=== PATIENT | male | born 1960 | race Caucasian/White ===

== ENCOUNTER 2017-07-18 05:21 | Day surgery (SDC) | payer MEDICARE, BC ==
[2017-07-17 11:18] LABS: BASOPHILS 0.3 % (0-2); EOSINOPHILS 2.2 % (0-7); HEMATOCRIT 43.3 % (42.0-54.0); HEMOGLOBIN 14.1 g/dL (13.5-17.5); IMMATURE GRANULOCYTES 0.6 % (0-5); LYMPHOCYTES 12.4 % (15-50); MCH 33.4 pg (26.0-34.0); MCHC 32.6 g/dL (31.0-37.0); MCV 102.6 fL (80.0-100.0); MEAN PLATELET VOLUME 9.9 fL (7.4-10.4); MONOCYTES 7.6 % (2-11); NEUTROPHILS 76.9 % (40-80); RBC 4.22 10x6/uL (4.20-6.10); RDW 14.3 % (11.5-14.5); WBC 6.7 10x3/uL (4.8-10.8)
[2017-07-17 11:27] LABS: PLATELET COUNT 165 10x3/uL (130-400)
[2017-07-17 11:33] LABS: APTT 27.5 SECONDS (22.8-39.4); INR 1.05 (0.85-1.17); PROTIME 13.3 SECONDS (11.6-15.0)
[2017-07-17 11:39] LABS: ANION GAP 16.3 mmol/L (8-16); CALCIUM 9.7 mg/dL (8.5-10.1); CARBON DIOXIDE 21.8 mmol/L (21.0-32.0); CREATININE - SERUM 6.1 mg/dL (0.6-1.3); POTASSIUM - SERUM 4.1 mmol/L (3.5-5.1)
[2017-07-17 12:17] LABS: APPEARANCE TURBID (CLEAR); BACTERIA MODERATE /hpf (NONE SEEN); BILIRUBIN NEGATIVE (NEGATIVE); COLOR YELLOW (YELLOW); EPITHELIAL CELLS RARE /hpf (0-5); GLUCOSE NEGATIVE (NEGATIVE); KETONE NEGATIVE (NEGATIVE); MUCUS <1+ /lpf (NONE SEEN); NITRITE NEGATIVE (NEGATIVE); PROTEIN 1+ mg/dL (NEGATIVE); RED CELLS - URINE 0-5 /hpf (0-5); UROBILINOGEN NORMAL (NORMAL); WHITE CELLS - URINE >50 /hpf (0-5)
[~2017-07-18] VITALS: Ht 175.3 cm; Wt 115.7 kg
[~2017-07-18 05:21] MED LIST: HYZAAR 100-12.51 TAB PO; METOPROLOL TART50 MG PO; SODIUM BICARBO325 MG PO; SODIUM BICARBO650 MG PO; SYNTHROID50 MCG PO; TRIGLIDE160 MG PO; ULTRAM50 MG PO; VALTREX1000 MG PO; VITAMIN D31000 UNI2; ZETIA10 MG PO; ZYLOPRIM100 MG PO
[2017-07-18] MEDS ORDERED: LIPOFEN50 MG PO (07:26)
[2017-07-18 07:30] VITALS: Ht 175.3 cm; Wt 115.7 kg
[2017-07-18] MEDS ORDERED: HYDROCODON-ACE1 EAC7 PO (12:01)
--- NOTE | 2017-07-18 13:25 | NUR ---
1312 BACK FROM SURGERY LEFT ARTERIOVENOUS CREATION LEFT ARM DRESSING X 2 LEFT ARM LOWER ARM AREA CIRCLED. NO BLEEDING. GOOD BRUIT AND THRILL. DENIES PAIN OR NAUSEA. ARM LEFT ON PILLOW, C/L IN REACH.
--- NOTE | 2017-07-18 13:53 | NUR ---
1342 APPOINTMENT MADE FOR Friday07/24/17 AT 0900 FOR FOLLOW UP CALLED OFFICE AND WAS AVAILABLE AND MADE APPOINTMENT. LEFT ARM DRESSING X2 C/D/I NO BLEEDING ARM ELEVATED GOOD BRUIT.
--- NOTE | 2017-07-18 14:19 | NUR ---
1412 UP WITH ASSISTANCE NO DIZZINES B/P 113/61. WENT OVER DISCHARGE INSTRUCTIONS WITH PATIENT AND . VERBALLY UNDERSTANDS. WANTS TO WAIT TO GET IV OUT AFTER VOIDS.
--- NOTE | 2017-07-18 14:43 | NUR ---
1425 DRESSED SELF WITH ASSISTING. IV DCD CATHETER INTACT.
--- NOTE | 2017-07-18 14:44 | NUR ---
1430 TO HOME VIA W/C WITH .
--- NOTE | 2017-07-26 15:06 | OP ---
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 OPERATION PERFORMED: Implantation of a PTFE AV graft in the left axilla, axillary loop graft utilizing 6-mm straight standard wall thickness Madison Propaten PTFE. SURGEON: Skye Munoz MD ANESTHESIA: General with LMA per PISTON MAKER. PREOPERATIVE NOTE: Mr. Carolina is a very nice 57-year-old white male patient referred to me by Dr. Darrius Astudillo for provision of dialysis access. The patient has chronic kidney disease in an advanced age and is anticipated that he will need dialysis in the coming year. I have already created previous fistulas, which thrombosed without maturing. So, he is going to have a graft today. DESCRIPTION OF PROCEDURE: With the patient under general anesthesia, he was prepped and draped in a sterile manner and a transverse axillary incision made in the axillary artery and axillary vein exposed and controlled with Silastic loops. They were of good caliber and were very suitable for anastomosis for this purpose. I chose a 6-mm standard wall thickness straight Madison-Pro Propaten graft. This one was 60 cm in length before it was shortened. I bevelled one in, then I anastomosed it to the artery with running continuous 6-0 Prolene. When the artery was opened, it was flushed proximally and distally with dilute heparin saline solution and no other systemic anticoagulation was utilized. The suture line was hemostatic upon completion. The graft was placed in a very superficial subcutaneous tunnel, which passed anteriorly and laterally and then down the anterior aspect of the arm before curving back towards the medial aspect of the arm and passing back upwards into the axilla. A single counterincision was made just above the antecubital space to facilitate passage of the graft. The graft took a smooth curve and there were no areas of twisting or kinking. The graft was shortened and beveled and anastomosed end-to-side to the axillary vein with running 6-0 Prolene with again just regional heparinization. Upon completion of the last suture line and release of the occluding clamps and loops, excellent flow was established within the new graft and the suture lines were both hemostatic. The patient's blood pressure was low, more or less throughout the operation and I anticipate the flow will increase once his pressure climbs in the recovery room. The wounds were checked for hemostasis and found to be quite satisfactory. The wounds were infiltrated and irrigated with 0.25% Marcaine without epinephrine. The wound was irrigated with Ancef and gentamicin solution and then closed without the use of a drain approximating subcutaneous tissues with interrupted inverted 3-0 Vicryl closing the skin with running intracuticular 4-0 Monocryl. The skin incisions further were glued and then dressed with Maxorb Ag, Tegaderm, and Cavilon skin prep. The patient was awakened and was taken to the recovery room in stable condition. OPERATIVE REPORT [id number] KVNG CAROLINA Blood loss during the operation was insignificant, perhaps 5 cc. None was replaced intraoperatively. All sponges, instruments, and needles were accounted for. No drain was used. He will go home today and follow up with me in my office next week. He is given a prescription for 20 tablets of hydrocodone with acetaminophen 5 mg/325 mg. TRANSINT:[id number] Voice Confirmation ID: [id number] DOCUMENT ID: [id number] SKYE MUNOZ MD at 1506 CC: BUCKY ASTUDILLO MD [id number] DICTATION DATE: 07/18/17 1215 CHIEF MAINTENANCE SUPERVISOR: 07/18/17 1450 [facility] 07/18/17 [place] [id number] [place] [address]
== END 2017-07-18 14:30 | disposition home or self-care (01) ==
LOC: D.OPS 05:21 → D.PAN 08:00 → D.OPS 08:00
PROVIDERS: Anesthesiology; Internal Medicine Nephrology
DX: I12.0 Hypertensive chronic kidney disease with stage 5 chronic kidney disease or end stage renal disease (principal); N18.5 Chronic kidney disease, stage 5; E03.9 Hypothyroidism, unspecified; G47.30 Sleep apnea, unspecified; K21.9 Gastro-esophageal reflux disease without esophagitis; E66.01 Morbid (severe) obesity due to excess calories; Z68.37 Body mass index [BMI] 37.0-37.9, adult

== ENCOUNTER → 2017-10-22 08:04 | Outpatient (CLI) | payer MEDICARE ==
[2017-07-18 07:30] VITALS: BMI 37.7
[~2017-10-22 08:04] MED LIST changes: +HYDROCODON-ACE1 EAC7 PO; +LIPOFEN50 MG PO
[2017-10-22 09:21] LABS: ALBUMIN 3.7 g/dL (3.4-5.0); BILIRUBIN - DIRECT 0.31 mg/dL (0.00-0.30); BILIRUBIN - INDIRECT 0.39 mg/dL (0.00-1.00); BILIRUBIN - TOTAL 0.7 mg/dL (0.2-1.3); PROTEIN - SERUM 8.5 g/dL (6.4-8.2)
[2017-10-23 13:17] LABS: HEPATITIS C ANTIBODY <0.1 (0.0-0.9)
== END | disposition home or self-care (01) ==
LOC: D.US 10-16 10:30 → D.LAB 10-16 11:00 → D.US 08:04
PROVIDERS: Internal Medicine Gastroenterology
DX: R74.8 Abnormal levels of other serum enzymes (principal); R94.5 Abnormal results of liver function studies

== ENCOUNTER → 2017-10-30 07:33 | Outpatient (CLI) | payer MEDICARE ==
[2017-07-18 07:30] VITALS: BMI 37.7
== END | disposition home or self-care (01) ==
LOC: D.MRI 07:33
DX: N28.1 Cyst of kidney, acquired (principal); R93.5 Abnormal findings on diagnostic imaging of other abdominal regions, including retroperitoneum

== ENCOUNTER 2017-11-19 09:43 | Day surgery (SDC) | payer MEDICARE ==
[~2017-11-19] VITALS: Ht 175.3 cm; Wt 118.8 kg
--- NOTE | ~2017-11-19 | OP ---
PATIENT NAME: KVNG PELLETIER MEDICAL RECORD: [id number] :60 [facility] DATE: SURGEON: RADHA CALLOWAY DO DATE OF OPERATION: 11/19/2017 PROCEDURE: Colonoscopy with biopsy and polypectomy. INDICATIONS FOR PROCEDURE: Altered bowel function and hematochezia. SCOPE: Elimi video pediatric colonoscope. MEDICATIONS: Propofol 400 mg IV per anesthesia. WITHDRAWAL TIME: 14 minutes. ESTIMATED BLOOD LOSS: Minimal. COMPLICATIONS: None. FINDINGS: Informed consent was given. The patient was made comfortable with the above medication. After reaching an adequate level of sedation by slow IV push, the patient was placed on his left side. A digital rectal examination was performed and revealed some benign prostatic hyperplasia. The endoscope was then advanced under direct visualization through the rectum to the terminal ileum. The scope was slowly withdrawn and mucosa was carefully examined. The prep quality was good. There was a single polyp visualized on today's examination. It was a benign appearing sessile polyp located in the transverse colon which measured approximately 6 mm in diameter. He had a lacy pattern and appeared to be consistent with a serrated adenomatous polyp. It was removed in 1 piece using a hot snare and completely retrieved. There was evidence of moderate diverticulosis involving the descending and sigmoid colon. There was no evidence of diverticulitis. In the rectum, there was some erythema and friability, which could be consistent with proctitis. Cold forceps biopsies were taken to submit for histology. Retroflexion was performed in the rectum with visualization of grade II internal hemorrhoids without bleeding. The endoscope was then withdrawn from the patient. The patient tolerated the procedure well and there were no complications. IMPRESSION: 1. Possible proctitis with biopsies pending. 2. Grade II internal hemorrhoids without bleeding. 3. Moderate diverticulosis of the descending and sigmoid colon. 4. A single transverse colon polyp removed using a hot snare. PLAN AND RECOMMENDATIONS: 1. Discharge home when recovery parameters are met. 2. Follow up biopsy specimen results. 3. Continue current medications. 4. We will give a 2-week trial of hydrocortisone suppositories to see if this helps bleeding symptoms. 5. Consider surgical consultation for intervention regarding the hemorrhoids. 6. Recall colonoscopy will be dependent on results of polyp removed on today's examination, but I anticipate this being in 2-3 years. TRANSINT:[id number] Voice Confirmation ID: [id number] DOCUMENT ID: [id number] OPERATIVE REPORT [id number] KVNG PELLETIER TIFFANYLawrence CALLOWAY,RADHA Wadsworth DO at 1524 CC: [id number] DICTATION DATE: 11/19/17 1246 TAX EXAMINING TECHNICIAN: 11/19/17 1314 [facility] 11/19/17 [place] [id number] [place] [id number]
[2017-11-19 10:58] LABS: BASOPHILS 0.7 % (0-2); EOSINOPHILS 1.9 % (0-7); HEMATOCRIT 48.5 % (42.0-54.0); HEMOGLOBIN 16.1 g/dL (13.5-17.5); IMMATURE GRANULOCYTES 0.2 % (0-5); LYMPHOCYTES 12.1 % (15-50); MCH 33.3 pg (26.0-34.0); MCHC 33.2 g/dL (31.0-37.0); MCV 100.4 fL (80.0-100.0); MONOCYTES 8.6 % (2-11); NEUTROPHILS 76.5 % (40-80); PLATELET COUNT 132 10x3/uL (130-400); RBC 4.83 10x6/uL (4.20-6.10); RDW 13.2 % (11.5-14.5); WBC 4.2 10x3/uL (4.8-10.8)
[2017-11-19 11:01] VITALS: Ht 175.3 cm; Wt 118.8 kg
[2017-11-19 11:16] LABS: APTT 28.6 SECONDS (22.8-39.4); INR 1.12 (0.85-1.17)
[2017-11-19 11:21] LABS: CARBON DIOXIDE 18.9 mmol/L (21.0-32.0); CREATININE - SERUM 6.1 mg/dL (0.6-1.3); POTASSIUM - SERUM 3.9 mmol/L (3.5-5.1)
== END 2017-11-19 13:50 | disposition home or self-care (01) ==
LOC: D.OPS 09:43
PROVIDERS: Anesthesiology
DX: K64.1 Second degree hemorrhoids (principal); K57.30 Diverticulosis of large intestine without perforation or abscess without bleeding; D12.3 Benign neoplasm of transverse colon; Z01.812 Encounter for preprocedural laboratory examination

== ENCOUNTER 2018-03-03 05:55 | Day surgery (SDC) | payer MEDICARE ==
[2018-03-02 11:59] LABS: EOSINOPHILS 2.3 % (0-7); HEMATOCRIT 46.1 % (42.0-54.0); HEMOGLOBIN 15.3 g/dL (13.5-17.5); IMMATURE GRANULOCYTES 0.4 % (0-5); LYMPHOCYTES 16.7 % (15-50); MCH 34.7 pg (26.0-34.0); MCHC 33.2 g/dL (31.0-37.0); MCV 104.5 fL (80.0-100.0); MEAN PLATELET VOLUME 10.3 fL (7.4-10.4); MONOCYTES 9.2 % (2-11); NEUTROPHILS 70.4 % (40-80); PLATELET COUNT 153 10x3/uL (130-400); RBC 4.41 10x6/uL (4.20-6.10); RDW 14.5 % (11.5-14.5); WBC 5.2 10x3/uL (4.8-10.8)
[2018-03-02 12:36] LABS: ANION GAP 17.6 mmol/L (8-16); CALCIUM 9.7 mg/dL (8.5-10.1); CARBON DIOXIDE 21.7 mmol/L (21.0-32.0); CREATININE - SERUM 6.3 mg/dL (0.6-1.3); POTASSIUM - SERUM 5.3 mmol/L (3.5-5.1)
[2018-03-02 12:42] LABS: APTT 28.1 SECONDS (22.8-39.4); INR 1.12 (0.85-1.17)
[~2018-03-03] VITALS: Ht 175.3 cm; Wt 118.8 kg
--- NOTE | ~2018-03-03 | OP ---
PATIENT NAME: KVNG CAROLINA MEDICAL RECORD: [id number] :60 LOCATION:[facility] ADMISSION DATE: SURGEON: SKYE MUNOZ MD DATE OF OPERATION: 03/03/2018 REFERRED BY: Marielos Astudillo MD PREOPERATIVE DIAGNOSES: 1. Chronic kidney disease stage V, nearing need for dialysis. 2. Thrombosed left arm PTFE AV graft. POSTOPERATIVE DIAGNOSES: 1. Chronic kidney disease stage V, nearing need for dialysis. 2. Thrombosed left arm PTFE AV graft. OPERATION PERFORMED: Removal of possibly infected left arm AV graft with direct suture repair of laceration of the left brachial artery, which occurred during the operation. SURGEON: Skey Munoz MD ANESTHESIA: General with LMA and regional block per NUCLEAR TEST TECHNICIAN. PREOPERATIVE NOTE: Mr. Carolina is a 57-year-old white male, who has had several operations in his left arm for dialysis access, which have all failed. He has had a previous radiocephalic fistula and a brachiobasilic fistula with translocation, which failed and subsequently also a PTFE loop axillo-axillary graft, which failed. I am going to today per his request remove the PTFE graft in his arm and if possible perhaps implant a bovine Artegraft loop. The patient understands that this may not be suitable and he may need to have an operation in his right arm. DESCRIPTION OF PROCEDURE: Under regional block and general anesthesia, the patient was placed in supine position, prepped and draped in sterile manner. A transverse incision was made reopening the old incision in the left axilla. The subcutaneous tissues were divided with electrocautery. The arterial limb of the PTFE graft was identified and dissection exposed the PTFE and almost immediately resulted in a laceration of the axillary artery distal to the anastomosis. This was initially controlled with digital pressure. I placed a micropuncture needle wire and catheter into the arterial limb of the graft directed proximally and subsequently placed a 6-Serbian introducer and through that introduced a 4-Serbian Sadiq embolectomy catheter and used that to occlude the proximal axillary artery. Dissection was then continued until the proximal artery and artery distal to the anastomoses were both controlled with doubly looped Silastic tapes, and the Sadiq catheter and introducer were removed. I performed a suture repair of the laceration of the artery with continuous 6-0 Prolene and when completed, Doppler flow was present in the artery distally, but flow was predominantly in the deep brachial branch, which took off from the proximal brachial or distal axillary artery just above the PTFE anastomosis. I found at this point that there was pulsatile Doppler flow in the radial artery at the wrist, although it was rather damped. There appeared to be good capillary refill of the skin of the hand and fingers. Because of the patient's marginal renal function, I elected not to perform angiography. The PTFE graft was found to be unattached to the surrounding tissues and its tunnel and did have a slimy feel of a biofilm. I thought it might well be infected or with some type of OPERATIVE REPORT [id number] KVNG CAROLINA low-grade staphylococcal infection possible. I made one additional incision over the graft in the tunnel and was able to easily mobilize both arterial and venous limbs. The venous and arterial limb both were closed near the anastomosis with surgical stapling device and transected and the rest of the graft then removed in a single segment. I sent a portion of that as a specimen to the laboratory for culture and sensitivity. The wound was irrigated with Ancef-gentamicin solution. Hemostasis was obtained with very minimal use of electrocautery and some use of Fibrillar hemostatic material. The wound was subsequently closed without the use of a drain approximating subcutaneous tissues with interrupted 3-0 Vicryl and skin with running intracuticular Monocryl. The small counter incision was closed similarly. Sterile dressings of Maxorb Ag, Tegaderm, and Cavilon skin prep were applied. The patient was awakened and taken to the recovery room in stable condition. In the recovery room, there is no bleeding apparent and the patient does have damped pulsatile Doppler flow in the radial artery by Doppler and still has good capillary refill. I thought that it would be contraindicated to try to place another graft in the patient's arm today. I think he will be most likely returned to the operating room in the near future to try to place an access in his right arm. He will be discharged to home today and I will have him return to see me in my office on of this week. TRANSINT:[id number] Voice Confirmation ID: [id number] DOCUMENT ID: [id number] SKYE MUNOZ MD at 0847 CC: MARIELOS ASTUDILLO [id number] DICTATION DATE: 03/03/18 1132 REPAIR SERVICER: 03/03/18 1210 [facility] 03/03/18 [place] [id number] [place] [id number]
[~2018-03-03 05:55] MED LIST changes: +PLAVIX75 MG PO; +RENVELA800 MG PO
[2018-03-03 06:35] VITALS: Ht 175.3 cm; Wt 118.8 kg
[2018-03-03] MEDS ORDERED: HYDROCODON-ACE1 EAC7 PO (11:51)
== END 2018-03-03 15:54 | disposition home or self-care (01) ==
LOC: D.OPS 05:55
PROVIDERS: Surgery
DX: T82.868A Thrombosis due to vascular prosthetic devices, implants and grafts, initial encounter (principal); N18.5 Chronic kidney disease, stage 5; I97.51 Accidental puncture and laceration of a circulatory system organ or structure during a circulatory system procedure; Z01.812 Encounter for preprocedural laboratory examination

== ENCOUNTER 2018-03-27 06:00 | Day surgery (SDC) | payer MEDICARE ==
[2018-03-26 11:09] LABS: BASOPHILS 0.4 % (0-2); HEMATOCRIT 42.7 % (42.0-54.0); HEMOGLOBIN 14.3 g/dL (13.5-17.5); IMMATURE GRANULOCYTES 0.4 % (0-5); LYMPHOCYTES 17.1 % (15-50); MCHC 33.5 g/dL (31.0-37.0); MCV 104.7 fL (80.0-100.0); MEAN PLATELET VOLUME 9.9 fL (7.4-10.4); MONOCYTES 10.4 % (2-11); NEUTROPHILS 68.7 % (40-80); PLATELET COUNT 160 10x3/uL (130-400); RBC 4.08 10x6/uL (4.20-6.10); RDW 14.1 % (11.5-14.5)
[2018-03-26 11:31] LABS: APTT 25.2 SECONDS (22.8-39.4); INR 1.14 (0.85-1.17); PROTIME 14.2 SECONDS (11.6-15.0)
[2018-03-26 11:46] LABS: ANION GAP 22.5 mmol/L (8-16); CALCIUM 9.5 mg/dL (8.5-10.1); CARBON DIOXIDE 19.2 mmol/L (21.0-32.0); CREATININE - SERUM 5.8 mg/dL (0.6-1.3); POTASSIUM - SERUM 4.7 mmol/L (3.5-5.1)
[~2018-03-27] VITALS: Ht 175.3 cm; Wt 122.0 kg
--- NOTE | ~2018-03-27 | OP ---
PATIENT NAME: KVNG CAROLINA MEDICAL RECORD: [id number] :60 LOCATION:D.OPS ADMISSION DATE: SURGEON: SKYE MUNOZ MD DATE OF OPERATION: 03/27/2018 PREOPERATIVE DIAGNOSIS: Chronic kidney disease V. POSTOPERATIVE DIAGNOSIS: Chronic kidney disease V. REFERRING PHYSICIAN: Marielos Astudillo MD OPERATION PERFORMED: Implantation of Artegraft in right forearm brachial artery to cephalic vein loop graft. SURGEON: Skye Munoz MD ANESTHESIA: Regional block plus MAC per RUBBER OFF. PREOPERATIVE NOTE: Mr. Carolina is a very nice 57-year-old white male patient from [place], [place] with chronic kidney disease. He has had previous dialysis access operations in the left arm, which failed and he has just had a very difficult time. Fortunately, those wounds are healed and he has good function in the left arm, but he needs access now as his renal function is significantly deteriorating and Dr. Astudillo feels he needs to start dialysis, I believe as soon as he has a satisfactory access. He is returned to the operating room now for a new AV graft in the right arm and as I have discussed with Dr. Astudillo and the patient, I planned use a bovine derived prosthetic Artegraft. Under regional block and IV sedation and monitoring per RUBBER OFF, the patient was prepped and draped in sterile manner. His arm was examined with a venous tourniquet in place and after application of nitroglycerin ointment, the cephalic vein at the wrist was standing up nicely and there appeared to be good veins in the antecubital space. These in the past could have made good primary fistula, I believe and certainly he has the vessels to support, a graft is planned today. I then made a transverse incision across the antecubital space and dissected and isolated the median cubital and cephalic vein and the brachial artery and its bifurcation and proximal radial and proximal ulnar arteries. These vessels were controlled with Silastic loops. I made a subcutaneous tunnel with a single counterincision distally just proximal to the wrist. I chose a 6 mm diameter Artegraft. It was bevelled. The vein was occluded and opened and flushed with heparinized saline proximally and distally after which the vein was anastomosed end of vein to side of artery with running 6-0 Prolene. The vein was flushed with heparinized saline and the suture line found to be hemostatic and watertight. The graft was then placed in the subcutaneous tunnel and brought back to the antecubital space. It was again distended with heparinized saline and noted to be without any leaks or any evidence of twisting. It was shortened and bevelled. The artery was occluded and opened and then flushed proximally and distally with heparinized saline. The end of graft was anastomosed to the side of artery with running 6-0 Prolene and when that was completed and the occluding loops and clamps were released, excellent flow was immediately established within the fistula and the suture line was hemostatic. The wounds were irrigated with Ancef/gentamicin solution and closed with interrupted OPERATIVE REPORT [id number] KVNG CAROLINA inverted 3-0 Vicryl and then running intracuticular 4-0 Stratafix. The incisions were sealed with Dermabond glue and dressed with Maxorb Ag, Tegaderm, and Cavilon skin prep and the patient was awakened from his anesthetic, was taken to the outpatient department bypassing recovery. I am allowing him to go home today and he will return to see me in my office Friday week, today is the , next Friday is the , and Friday week would be the . There was blood loss of about 5 cc or less today. No drain was used. All sponges, instruments and needles were accounted for. No surgical specimen was submitted for histopathology. TRANSINT:[id number] Voice Confirmation ID: [id number] DOCUMENT ID: [id number] SKYE MUNOZ MD at 1244 CC: MARIELOS ASTUDILLO [id number] DICTATION DATE: 03/27/18 1049 CLINICAL EDUCATION SPECIALIST: 03/27/[address] [facility] 03/27/18 [facility] [address] [place] [address]
[2018-03-27 06:57] VITALS: BP 157/92; Ht 175.3 cm; Wt 122.0 kg
== END 2018-03-27 12:10 | disposition home or self-care (01) ==
LOC: D.OPS 06:00 → D.PAN 08:00 → D.OPS 12:10
PROVIDERS: Surgery
DX: N18.5 Chronic kidney disease, stage 5 (principal); Z01.812 Encounter for preprocedural laboratory examination